=== PATIENT | male | born 1950 | race Caucasian/White ===

== ENCOUNTER 2016-07-28 09:05 | Day surgery (SDC) | payer OTHER ==
[2016-07-28] MEDS ORDERED: NS 500 ML IV ONE (09:09)
[2016-07-28] MEDS ORDERED: PROPOFOL 200 MG/20 ML VIAL IVP ONE (09:09)
[2016-07-28] MEDS ORDERED: MIDAZOLAM 2 MG/2 ML VIAL IVP ONE (09:09)
[2016-07-28] MEDS ORDERED: fentaNYL 100 MCG/2 ML INJ IVP ONE (09:09)
--- NOTE | 2016-07-28 09:26 | CPEKG ---
Heart Rate: 78 RR Interval: 769 QRSD Interval: 70 QT Interval: 384 QTC Interval: 438 QRS [place]: 26 T Wave [place]: 16 EKG Severity - ABNORMAL ECG - EKG Impression: ATRIAL FIBRILLATION, V-RATE 57-90 Electronically Signed By: Makenzie Reynolds 28-Jul-2016 12:43:14
[2016-07-28 09:44] LABS: INR 1.17 (0.83-1.16); PROTIME(PATIENT) 14.9 SEC (12.0-15.0)
[2016-07-28 09:45] LABS: APTT 42.4 SEC (23.0-38.0)
[2016-07-28 10:03] LABS: ANION GAP 8 mEq/L (8-16); CALCIUM 9.5 mg/dL (8.5-10.4); CARBON DIOXIDE 24 mEq/l (22-31); CHLORIDE 111 mEq/L (97-110); CREATININE 1.2 mg/dL (0.7-1.3); GLOMERULAR FILTRATION RATE > 60; GLUCOSE 89 mg/dL (70-100); POTASSIUM 4.7 mEq/L (3.5-5.2); SODIUM 143 mEq/L (134-144)
--- NOTE | 2016-07-28 10:48 | CPEKG ---
Heart Rate: 70 RR Interval: 857 P-R Interval: 172 QRSD Interval: 74 QT Interval: 400 QTC Interval: 432 P [place]: 52 QRS [place]: 19 T Wave [place]: 12 EKG Severity - NORMAL ECG - EKG Impression: SINUS RHYTHM Electronically Signed By: Makenzie Reynolds 28-Jul-2016 12:43:02
--- NOTE | 2016-07-28 10:57 | PDTEE1 ---
JENNY Cardioversion Procedure Indications: Atrial Fibrillation Consent: Signed and in Chart Anticoagulation: Eliqucatrachita Procedural Details: Pads were placed in anterior-posterior position. Synchronized cardioversion attempt #1: 200J Results: Normal sinus rhythm Conclusions: Successful Cardioversion Conclusion Comment: Successful cardioversion with spiritism of sinus rhythm Patient Problems: Problems Problem Status Diagnosed Atrial fibrillation Acute
== END 2016-07-28 11:41 | disposition home or self-care (01) ==
LOC: FCATH 09:05
PROVIDERS: ATTEND Internal Medicine Interventional Cardiology
PROC: 5A2204Z Restoration of Cardiac Rhythm, Single (ICD-10-PCS; principal; 2016-07-28)
DX: I48.1 Persistent atrial fibrillation (principal); I10 Essential (primary) hypertension; E78.5 Hyperlipidemia, unspecified; G47.30 Sleep apnea, unspecified; F17.200 Nicotine dependence, unspecified, uncomplicated; D75.1 Secondary polycythemia; Z79.01 Long term (current) use of anticoagulants; Z86.010 Personal history of colon polyps; Z85.46 Personal history of malignant neoplasm of prostate
CPT/HCPCS: J2704

== ENCOUNTER → 2016-08-07 | Outpatient (CLI) | payer OTHER | LOC: BHFA 09:00 | PROVIDERS: ATTEND Internal Medicine Interventional Cardiology | DX: I48.91 Unspecified atrial fibrillation (principal); I10 Essential (primary) hypertension; E78.5 Hyperlipidemia, unspecified ==